=== PATIENT | male | born 1995 | race Caucasian/White ===

== ENCOUNTER 2019-10-01 12:53 | Observation (INO) | payer OTHER ==
[~2019-10-01] VITALS: Ht 188 cm; Wt 74.2 kg
[2019-10-01] MEDS ORDERED: IV RINGERS,LACTATED 1000ML 1,000 ML IV SCH (13:09)
[2019-10-01] MEDS ORDERED: PROPOFOL 20 ML IV ONE (13:15)
[2019-10-01] MEDS ORDERED: fentaNYL PF VIAL 100 MCG/2 ML VIAL ONE (13:15)
[2019-10-01] MEDS ORDERED: LIDOCAINE 1% PF 2 ML VIAL. ID PRN (13:15)
[2019-10-01] MEDS ORDERED: HYDROmorphone 2 MG/ML VIAL IV PRN (13:15)
[2019-10-01] MEDS ORDERED: LIDOCAINE 2% PF 5 ML VIAL. ONE (13:15)
[2019-10-01] MEDS ORDERED: fentaNYL PF VIAL 100 MCG/2 ML VIAL IV PRN (13:15)
[2019-10-01] MEDS ORDERED: ONDANSETRON PF 4 MG/2 ML VIAL. IV PRN ×2 (13:15→13:30)
[2019-10-01] MEDS ORDERED: PROCHLORPERAZINE 10 MG/2 ML VIAL. IV PRN (13:15)
[2019-10-01] MEDS ORDERED: PIPERACILLIN/TAZOBACTAM 3.375 GM in IV NORMAL SALINE 50ML 50 ML IV ONE (13:30)
[2019-10-01] MEDS ORDERED: DOCUSATE SODIUM 100 MG CAPSULE. PO PRN (13:30)
[2019-10-01] MEDS ORDERED: oxyCODONE/APAP 5/325 1 TAB TABLET PO PRN (13:30)
[2019-10-01] MEDS ORDERED: ZOLPIDEM 5 MG TABLET. PO PRN (13:30)
--- NOTE | 2019-10-01 13:32 | PDOC1 ---
History and Physical Date of Admission Date of Admission DATE: 10/01/19 TIME: 13:29 Identification/Chief Complaint Chief Complaint Right great toe injury Source Source: Patient History of Present Illness History of Present Illness Patient is very pleasant 24-year-old who works for [employer] and dropped a large heavy box on his toe today noticed immediate blood in the wound. He tells me he taped it up and sought care later when the bleeding and swelling within did not improve. He tells me his right toe pain is tolerable right now, he has describes pain medicine, but it does hurt quite a bit otherwise. Hurts worse whenever he tries to ambulate or its in a dependent position. He denies any other injury or concern at this time. Past Medical History Cardiovascular: No pertinent hx Pulmonary: No pertinent hx Past Surgical History Past Surgical History: No pertinent history Family History Family History: Heart Disease Social History Smoke: No ALCOHOL: occassional Current Medications Current Medications Current Medications Ondansetron HCl (Zofran) 4 mg PRN Q6HRS PRN IV NAUSEA/VOMITING; Start 10/01/19 at 13:15; Stop 10/02/19 at 13:14 Fentanyl Citrate (Fentanyl 2ml Vial) 25 mcg PRN Q5MIN PRN IV MILD PAIN 1-3; Start 10/01/19 at 13:15; Stop 10/02/19 at 13:14 Fentanyl Citrate (Fentanyl 2ml Vial) 50 mcg PRN Q5MIN PRN IV MODERATE TO SEVERE PAIN; Start 10/01/19 at 13:15; Stop 10/02/19 at 13:14 Morphine Sulfate (Morphine Sulfate) 1 mg PRN Q10MIN PRN IV SEVERE PAIN 7-10; Start 10/01/19 at 13:15; Stop 10/02/19 at 13:14 Ringer's Solution 1,000 ml @ 30 mls/hr Q24H IV ; Start 10/01/19 at 13:09; Stop 10/02/19 at 01:08 Lidocaine HCl (Xylocaine-Mpf 1% 2ml Vial) 2 ml PRN 1X PRN ID PRIOR TO IV START; Start 10/01/19 at 13:15; Stop 10/02/19 at 13:14 Hydromorphone HCl (Dilaudid) 0.5 mg PRN Q10MIN PRN IV SEV PAIN, Second choice; Start 10/01/19 at 13:15; Stop 10/02/19 at 13:14 Prochlorperazine Edisylate (Compazine) 5 mg PACU PRN PRN IV NAUSEA, MRX1; Start 10/01/19 at 13:15; Stop 10/02/19 at 13:14 Propofol 20 ml @ As Directed STK-MED ONCE IV ; Start 10/01/19 at 13:15; Stop 10/01/19 at 13:15; Status DC Lidocaine HCl (Lidocaine Pf 2% Vial) 5 ml STK-MED ONCE .ROUTE ; Start 10/01/19 at 13:15; Stop 10/01/19 at 13:15; Status DC Fentanyl Citrate (Fentanyl 2ml Vial) 100 mcg STK-MED ONCE .ROUTE ; Start 10/01/19 at 13:15; Stop 10/01/19 at 13:16; Status DC Piperacillin Sod/ Tazobactam Sod 3.375 gm/Sodium Chloride 50 ml @ 100 mls/hr 1X ONCE IV ; Start 10/01/19 at 13:30; Stop 10/01/19 at 13:59 Allergies Allergies: Coded Allergies: No Known Drug Allergies (Unverified , 10/01/19) ROS General: No: Chills, Night Sweats, Fatigue, Malaise, Appetite, Other PSYCHOLOGICAL ROS: No: Anxiety, Behavioral Disorder, Concentration difficultie, Decreased libido, Depression, Disorientation, Hallucinations, Hostility, Irritablity, Memory difficulties, Mood Swings, Obsessive thoughts, Physical abuse, Sexual abuse, Sleep disturbances, Suicidal ideation, Other Eyes: No Blurry vision, No Decreased vision, No Double vision, No Dry eyes, No Excessive tearing, No Eye Pain, No Itchy Eyes, No Loss of vision, No Photophobia, No Scotomata, No Uses contacts, No Uses glasses, No Other HEENT: No: Heacaches, Visual Changes, Hearing change, Nasal congestion, Nasal discharge, Oral lesions, Sinus pain, Sore Throat, Epistaxis, Sneezing, Snoring, Tinnitus, Vertigo, Vocal changes, Other ALLERGY AND IMMUNOLOGY: No: Hives, Insect Bite Sensitivity, Itchy/Watery Eyes, Nasal Congestion, Post Nasal Drip, Seasonal Allergies, Other Hematological and Lymphatic: No: Bleeding Problems, Blood Clots, Blood Transfusions, Brusing, Night Sweats, Pallor, Swollen Lymph Nodes, Other ENDOCRINE: No: Breast Changes, Galactorrhea, Hair Pattern Changes, Hot Flashes, Malaise/lethargy, Mood Swings, Palpitations, Polydipsia/polyuria, Skin Changes, Temperature Intolerance, Unexpected Weight Changes, Other Respiratory: No: Cough, Hemoptysis, Orthopnea, Pleuritic Pain, Shortness of breath, SOB with excertion, Sputum Changes, Stridor, Tachypnea, Wheezing, Other Cardiovascular: No Chest Pain, No Palpitations, No Orthopnea, No Paroxysmal Noc. Dyspnea, No Edema, No Lt Headedness, No Other Gastrointestinal: No Nausea, No Vomiting, No Abdominal Pain, No Diarrhea, No Constipation, No Melena, No Hematochezia, No Other Genitourinary: No Dysuria, No Frequency, No Incontinence, No Hematuria, No Retention, No Discharge, No Urgency, No Pain, No Flank Pain, No Other, No , No , No , No , No , No , No Musculoskeletal: Yes Gait Disturbance, Yes Joint Pain, Yes Joint Stiffness Neurological: No Behavorial Changes, No Bowel/Bladder ControlChng, No Confus ion, No Dizziness, No Gait Disturbance, No Headaches, No Impaired Coord/balance, No Memory Loss, No Numbness/Tingling, No Seizures, No Speech Problems, No Tremors, No Visual Changes, No Weakness, No Other Skin: No Dry Skin, No Eczema, No Hair Changes, No Lumps, No Mole Changes, No Mottling, No Nail Changes, No Pruritus, No Rash, No Skin Lesion Changes, No Othe r, No Acne Physical Exam General: Alert, Oriented X3, No acute distress HEENT: Atraumatic, PERRLA, EOMI Lungs: Other (respirations aren't labored with symmetric chest rise) Heart: RRR, no jug vein distention Abdomen: Soft, No tenderness Extremities: No clubbing, No cyanosis, Other (complex laceration involving the nail at his right great toe dorsally) Neuro: Normal speech, Strength at 5/5 X4 ext, Sensation intact Psych/Mental Status: Mental status NL, Mood NL Images Images X-rays were interpreted by myself. He has a distal phalanx fracture of his right great toe with overlying soft tissue injury VTE Prophylaxis Ordered VTE Prophylaxis Devices: Contraindicated VTE Pharmacological Prophylaxi: Contraindicated Assessment/Plan Assessment/Plan Open right great toe fracture. I did discuss the risks, benefits, alternatives to surgical intervention and answered his questions. He did discuss admission for observation and antibiotics. He tells me that he will is not open to that at this time due to her recent in the family and that he will most likely be leaving later. I did discuss with him the higher risk of infection possibly as well as possible need for subsequent secondary procedures at an increased rate VLAD MCGHEE II, MD Oct 01, 2019 13:32
[2019-10-01] MEDS ORDERED: DEXAMETHASONE SOD PHOS 4 MG/ML VIAL ONE (13:36)
[2019-10-01] MEDS ORDERED: SEVOFLURANE 31 TO 60 MINUTES. IH ONE (13:36)
[2019-10-01] MEDS ORDERED: ONDANSETRON PF 4 MG/2 ML VIAL. ONE (13:39)
[2019-10-01] MEDS ORDERED: BUPIVACAINE MPF 0.5% 30 ML VIAL. ONE (13:46)
[2019-10-01] MEDS ORDERED: LIDOCAINE 1% PF 30 ML VIAL. ONE (13:46)
--- NOTE | 2019-10-01 14:15 | RAD ---
C-arm fluoroscopy with fluoroscopic spot views Clinical indications: Great toe pinning. Total fluoroscopic time: 0.3 minutes. Total fluoroscopic spot views: 2. IMPRESSION: Spot views demonstrate placement of a metallic surgical pin through the first distal phalanx thereby reducing and fixating the fracture. Electronically signed by: Jet Gibbons MD (10/01/2019 2:12 PM) [facility]
--- NOTE | 2019-10-01 14:39 | PDOC4 ---
Operative Note Operative Note Date of procedure: 10/01/2019 Surgeon: Neo Mcghee Preoperative diagnosis: Open right great toe fracture with nailbed injury Postoperative diagnosis: Same Procedure performed: #1 complex nailbed repair #2 open reduction internal fixation distal phalanx fracture #3 irrigation and debridement of open fracture down to bone Anesthesia: Gen. Findings: Acute fracture, complex laceration involving nailbed, open fracture with soft tissue stripping dorsally of distal phalanx Blood loss: 10 mL Tourniquet time: 31 minutes Components inserted: 0.45 mm K wire Complications: None Reason for procedure: Patient is a pleasant 24 year old who dropped a heavy box on his foot sustaining the above injury, he was seen in an outside emergency department and transferred here for definitive management. Please see my history and physical for further details. Description of procedure: Patient was greeted in the preoperative area by myself for the correct extremity was verified and marked. He was taken to the operative suite and his anabolic started as he was brought back. He had received Ancef at the outside facility, I added Zosyn. Once in the operative room, he was transferred gently supine to the operating room table and secured the bed with all pressure points padded and had successful induction of a general anesthetic. Nonsterile tourniquet taped in place to his right upper thigh. Right lower extremity was prepped and draped in our usual sterile fashion using Betadine paint. We then conducted our standard preoperative timeout. After this, I brought in the irrigation and hinged open the fracture site, it was held together by a 3 cm soft tissue bridge at the plantar aspect of his toe. I irrigated this out thoroughly with 1000 mL and then performed a debridement using small curet. I then continued my irrigation unreasonable about 2000 mL for this procedure. I continued my irrigation and debridement until I was satisfied that there was no debris left behind, this initially started as a fairly clean appearing wound in that there was no foreign material visible grossly. After this I introduced a K wire from retrograde fashion through the fracture site and out the tip of the toe and then lined everything back up again and advanced the K wire under fluoroscopic guidance, I felt that she be good reduction. I then cut the K wire. After this I repaired the skin laceration adjacent to the nailbed medially and laterally using 3-0 nylon. I then used 4-0 chromic suture to repair the comp looks laceration of his nail bed. After this, I placed his original nail which I had taken off, into the nail fold and held in place with a 3-0 chromic suture. I next infiltrated the subcutaneous tissues tissue for a field block-type effect around his great toe with my local anesthetic mixture. We then cleansed and dried the area and I placed Xeroform followed by gauze followed by sterile Sof-Rol followed by a very loose Tomas wrap to hold everything in place. The tourniquet was let down. He tolerated surgery well. No complications. All counts correct 2 prior to closure. At the conclusion, he was awakened from anesthesia and transferred gently supine to the recovery room cart and taken to the PACU in stable and extubated condition. Postoperative plan is to admit him for observation for 24 hours of antibiotics. He can weight-bear through his heel. NEO MCGHEE II, MD Oct 01, 2019 14:39
[2019-10-01] MEDS: fentaNYL PF VIAL 100 MCG/2 ML VIAL IV PRN ×2 (14:46→15:00)
[2019-10-01] MEDS: MORPHINE SULFATE 2 MG/ML VIAL. IV PRN ×2 (15:03→15:13)
[2019-10-01] MEDS: IV DEXTROSE 5 %-0.45 % NACL 1,000 ML IV SCH ×2 (15:56→23:26)
[2019-10-01] MEDS ORDERED: MORPHINE SULFATE 4 MG/ML VIAL. IV PRN (16:45)
[2019-10-01] MEDS ORDERED: MORPHINE SULFATE 2 MG/ML VIAL. IV PRN (16:45)
[2019-10-01 19:00] VITALS: BP 108/57
[2019-10-01] MEDS: oxyCODONE/APAP 5/325 1 TAB TABLET PO PRN (20:38)
[2019-10-01] MEDS: PIPERACILLIN/TAZOBACTAM 3.375 GM in IV NORMAL SALINE 50ML 50 ML IV SCH (20:38)
--- NOTE | 2019-10-01 21:07 | NUR ---
Jeannette Gil called this evening but RN was unable to take call at that time. Attempted to call back around 2100 but was unable to get a hold of her. Will attempt at a later time.
--- NOTE | 2019-10-01 21:38 | NUR ---
Spoke to Jeannette Gil who is the health and director of public safety for pt. She just wanted a quick update and to know progress.
[2019-10-01 23:00] VITALS: BP 98/62
[2019-10-02] MEDS: oxyCODONE/APAP 5/325 1 TAB TABLET PO PRN ×3 (01:11→14:34)
[2019-10-02] MEDS: PIPERACILLIN/TAZOBACTAM 3.375 GM in IV NORMAL SALINE 50ML 50 ML IV SCH ×3 (02:44→14:00)
[2019-10-02 03:03] VITALS: BP 103/34
[2019-10-02 07:00] VITALS: BP 102/60
[2019-10-02] MEDS ORDERED: OXYC1TAB15 PO (09:16)
[2019-10-02] MEDS ORDERED: AMOX1TAB61 PO (09:16)
[2019-10-02] MEDS: IV DEXTROSE 5 %-0.45 % NACL 1,000 ML IV SCH (09:26)
--- NOTE | 2019-10-02 09:55 | SSS ---
ADMIT DATE: HISTORY OF PRESENT ILLNESS: The patient is a 24-year-old male patient who works for [employer] and dropped a large, heavy box on his toe and noticed immediate blood in the wound. He apparently taped it and sought care later when the bleeding and swelling within did not improve. He was seen at [facility] and from there he was transferred to [facility] and he was evaluated by Dr. Gaston and underwent a complex nail bed repair, open reduction and internal fixation of distal phalanx fracture, irrigation and debridement of open fracture down to bone, and he was treated with IV cefazolin, with piperacillin/tazobactam 3.375 grams IV q. 6 hourly and a decision was made to discharge him home to continue with pain medication and oral antibiotic in the form of Augmentin and to follow with Dr. Neo Gaston in 2 weeks' time. He should be nonweightbearing for 6 weeks' time. PAST MEDICAL HISTORY: Unremarkable. PAST SURGICAL HISTORY: Unremarkable. ALLERGIES: He has no known drug allergies. MEDICATIONS: He is on no medication. FAMILY HISTORY: Unremarkable. SOCIAL HISTORY: He is engaged, has continued to smoke, but does not drink alcohol. He used to smoke marijuana. PHYSICAL EXAMINATION: GENERAL: On arrival to [facility], he looked well and was clearly in no apparent respiratory distress. No pallor, jaundice, cyanosis or thyromegaly. No jugular venous distension. No lower limb edema. VITAL SIGNS: His heart rate was 67, blood pressure was 98/62, temperature 98, respiratory rate was 20, and oxygen saturation was 96%. EXTREMITIES: His wound is covered with dressing. ASSESSMENT AND PLAN: The patient was discharged home to continue on amoxicillin/clavulanic acid 1 tablet twice a day with food for 2 weeks as well as oxycodone/APAP for Percocet 5/325 one tablet every 4-6 hours as needed. He should follow with Dr. Gaston's office in 2 weeks' time and should be nonweightbearing on his right big toe for 6 weeks. ALEX RUIZ MD DR: ALEXI/patricia JOB#: [id number] / [id number]
[2019-10-02 11:00] VITALS: BP 116/68
--- NOTE | 2019-10-02 14:50 | NUR ---
Pt was given all discharge instructions, follow up info, new prescriptions and teaching. Dressing changed on toe before discharging. Pain medicine given. Pt is alert x4, stable. Pt's fiance will be driving him home, returning with self care. All belongings left with pt at time of discharge. Pt was taken via wheelchair by Chucho BARRETT at time of discharge. Follow up with Dr. Gaston in 2 weeks, pt to make appointment.
--- NOTE | 2019-10-02 15:39 | PDOC ---
ORTHO PROGRESS NOTES Subjective Some pain, tolerable with Percocet Vitals Vital Signs Date Time Temp Pulse Resp B/P (MAP) Pulse Ox O2 Delivery O2 Flow Rate FiO2 10/02/19 14:34 99 Room Air 10/02/19 11:00 97.7 63 18 116/68 (84) 97.7 10/01/19 15:16 8 Notes A and A in bed some dried bloody drainage at toe, toe pink Assessment and Plan dressing change finish 24hrs abx, then D/C f/u in 2wks VLAD MCGHEE II, MD Oct 02, 2019 15:39
== END 2019-10-02 14:50 | disposition home or self-care (01) ==
LOC: EDSEX 12:53 → 4 NORTH 12:53
PROVIDERS: ADMIT Internal Medicine; ATTEND Internal Medicine
DX: S92.401A Displaced unspecified fracture of right great toe, initial encounter for closed fracture (principal); F17.200 Nicotine dependence, unspecified, uncomplicated; W20.8XXA Other cause of strike by thrown, projected or falling object, initial encounter; Y93.89 Activity, other specified; Y92.89 Other specified places as the place of occurrence of the external cause
CPT/HCPCS: 11762; 28505; 76000; 96365; 96366; 96375; 96376; A7015; G0378; G0379; J1100; J2001; J2270; J2405; J2543; J2704; J3010; J3490; J7120; A4461

== ENCOUNTER 2019-10-03 20:13 | Emergency (ER) | payer OTHER ==
[~2019-10-03] VITALS: Ht 188 cm; Wt 81.8 kg
[~2019-10-03 20:13] MED LIST: AMOX1TAB61 PO; OXYC1TAB15 PO
[2019-10-03 20:33] VITALS: BP 127/77
--- NOTE | 2019-10-03 20:55 | PHYS DOC ---
Past Medical History Past Medical History: No Pertinent History (EMI CANTU APRN) Past Surgical History: Other Additional Past Surgical Histo: RIGHT GREAT TOE (EMI CANTU APRN) Smoking Status: Current Every Day Smoker Alcohol Use: None (EMI CANTU APRN) Attending Signature I have participated in the care of this patient and I have reviewed and agree with all pertinent clinical information above including history, exam, and recommendations. (PAT DAVIS MD) Adult General Chief Complaint Chief Complaint: POST-OP PROBLEM HPI HPI Patient is a 24 year old medical presents to the ED today complaining of right great toe postop bleeding. Patient had external pinning of the right great toe after an injury 2 days ago. He was discharged from the hospital yesterday. He noted bleeding from the surgical site today. He states he change the dressing once at 3 pm today. (EMI CANTU APRN) Review of Systems Review of Systems Constitutional: Denies fever or chills [] Musculoskeletal: Reports bleeding from the right great toe surgical site Integument: Denies rash or skin lesions [] Neurologic: Denies headache, focal weakness or sensory changes [] All other systems were reviewed and found to be within normal limits, except as documented in this note. (EMI CANTU APRN) Allergies Allergies Allergies Coded Allergies Type Severity Reaction Last Updated Verified No Known Drug Allergies 10/01/19 No (PAT DAVIS MD) Physical Exam Physical Exam Constitutional: Well developed, well nourished, no acute distress, non-toxic appearance. [] Skin: Warm, dry, no erythema, no rash. [] Back: No tenderness, no CVA tenderness. [] Extremities: Right great toe tip with a surgical external pin with no signs of infection, dry blood noted on the pin. There is small amount of dry blood noted on the dressing surrounding the right great toe. +2 right pedal pulse. Adequate sensation to the right great toe. Neurologic: Alert and oriented X 3, normal motor function, normal sensory function, no focal deficits noted. [] Psychologic: Affect normal, judgement normal, mood normal. [] (EMI CANTU APRN) Current Patient Data Vital Signs Vital Signs Date Time Temp Pulse Resp B/P (MAP) Pulse Ox O2 Delivery O2 Flow Rate FiO2 10/03/19 20:33 97.9 65 16 127/77 (94) 98 Room Air 97.9 (PAT DAVIS MD) EKG EKG [] (EMI CANTU APRN) Radiology/Procedures Radiology/Procedures [] (EMI CANTU APRN) Course & Med Decision Making Course & Med Decision Making Pertinent Labs and Imaging studies reviewed. (See chart for details) This is a 24-year-old male patient who presents to the ED today complaining of postop bleeding. Patient had right great toe external pinning done 2 days ago, was discharged from the hospital yesterday. He noted increased bleeding today. On physical exam patient had small amount of bleeding. Patient and significant other were insisting on dressing change. External dressing was changed in the ED. Reminded patient postop bleeding is not unusual, as long as it small amount of bleeding they should consider applying pressure dressing and keeping the right foot iced and elevated as much as they can. reminded them to avoid touching the internal surgical site to avoid getting it infected. F/u with Ortho. (EMI CANTU APRN) Dragon Disclaimer Dragon Disclaimer This electronic medical record was generated, in whole or in part, using a voice recognition dictation system. (EMI CANTU APRN) Departure Departure Impression: Primary Impression: Post-op bleeding Disposition: 01 HOME, SELF-CARE Condition: STABLE Referrals: JENNIFER CORCORAN (PCP) VLAD MCGHEE II, MD follow up with DR. Mcghee as scheduled Additional Instructions: You had surgery yesterday. It is not unusual to experience post op bleeding after any surgery. If you notice bleeding consider applying pressure dressing to the wound. Avoid getting into the surgical site and touching it because you will get the area infected. Please ice and elevate the extremity. Please call your doctor tomorrow and set up a follow up appointment. Problem Qualifiers Primary Impression: Post-op bleeding Surgical complication system/body Area: subcutaneous tissue Procedure type: non-dermatologic Qualified Codes: L76.22 - Postprocedural hemorrhage of skin and subcutaneous tissue following other procedure EMI CANTU APRN Oct 03, 2019 20:55 PAT DAVIS MD Oct 03, 2019 22:51
== END 2019-10-03 21:10 | disposition home or self-care (01) ==
LOC: ER 20:13
DX: L76.22 Postprocedural hemorrhage of skin and subcutaneous tissue following other procedure (principal); F17.200 Nicotine dependence, unspecified, uncomplicated
CPT/HCPCS: 99281